=== PATIENT | female | born 1990 | race African-American/Black ===

== ENCOUNTER 2019-05-20 09:57 | Emergency (ER) | payer MEDICAID ==
[~2019-05-20] VITALS: Ht 152.4 cm; Wt 90.5 kg
[2019-05-20 09:59] VITALS: BP 140/85
--- NOTE | 2019-05-20 10:07 | NUR ---
pt ambulated to ER bed 07
--- NOTE | 2019-05-20 10:12 | NUR ---
PATIENT PRESENTS TO ED WITH FEVER AND PRODUCTIVE COUGH X 3 WEEKS. +RUNNY NOSE, +DIARRHEA, +N/A. PATIENT WITH 5/10 GENERALIZED BODY PAIN. TERAFLU TAKEN, WHICH PROVIDED NO RELIEF. DENIES URINARY SYMOPTOMS. UPON ASSESSMENT, PATIENT IS FEBRILE AND WARM TO TOUCH. PATIENT WITH CLEAR BREATH SOUNDS. HR EVEN AND REGULAR; PATIENT POSITIONED FOR COMFORT; HOB ELEVATED; BEDRAILS UP X2; BED DOWN. ER MD MADE AWARE OF PT STATUS. PMH: SICKLE CELL ANEMIA ALLERGIES: AZITHROMYCIN
[2019-05-20] MEDS ORDERED: cefTRIAXone 1,000 MG in LIDOCAINE MPF 1% 2.1 ML IM ONE (10:25)
[2019-05-20] MEDS ORDERED: ALBUTEROL SULFATE/IPRATROPIU 3 ML SOL IH ONE ×2 (10:25→11:35)
[2019-05-20] MEDS ORDERED: DEXAMETHASONE 10 MG/ML VIAL IM ONE (10:25)
[2019-05-20] MEDS ORDERED: hydrOXYzine HCL 25 MG TAB PO ONE (10:25)
[2019-05-20] MEDS ORDERED: cefTRIAXone 1,000 MG VIAL ONE (10:31)
[2019-05-20] MEDS ORDERED: LIDOCAINE MPF 1% 5 ML ONE (10:31)
[2019-05-20] MEDS ORDERED: MORPHINE SULFATE 4 MG/ML SYR IM ONE (10:50)
[2019-05-20 11:59] VITALS: BP 140/85
--- NOTE | 2019-05-20 12:00 | NUR ---
Patient discharged with v/s stable. Written and verbal after care instructions given and explained. Patient alert, oriented and verbalized understanding of instructions. Ambulatory with steady gait. All questions addressed prior to discharge. ID band removed. Patient advised to follow up with PMD. Rx of PROMETHAZINE, CLINDAMYCIN, PREDNISONE given. Patient educated on indication of medication including possible reaction and side effects. Opportunity to ask questions provided and answered.
== END 2019-05-20 12:00 | disposition home or self-care (01) ==
LOC: MED 09:57
DX: J32.9 Chronic sinusitis, unspecified (principal); Z86.2 Personal history of diseases of the blood and blood-forming organs and certain disorders involving the immune mechanism; Z88.1 Allergy status to other antibiotic agents
CPT/HCPCS: 94640; 96372; 99283; J0696; J1100; J2001; J2270

== ENCOUNTER 2019-05-28 15:23 | Emergency (ER) | payer MEDICAID ==
[~2019-05-28] VITALS: Ht 152.4 cm; Wt 90.7 kg
[2019-05-28 15:25] VITALS: BP 154/115
--- NOTE | 2019-05-28 15:36 | NUR ---
PT TRIAGED, SENT BACK TO LOBBY AWAITING FOR BED
--- NOTE | 2019-05-28 15:48 | NUR ---
Pt ambulated to bed 3 accompanied by significant other.
--- NOTE | 2019-05-28 15:59 | NUR ---
Patient crying, moaning, restless, uncontrollable, yelling in bed 3. Dr. White made aware. VORB orders for IV insertion received at this time.
--- NOTE | 2019-05-28 16:11 | NUR ---
DR SOMMER AT BEDSIDE
--- NOTE | 2019-05-28 16:12 | NUR ---
C/O SICKLE CELL CRISIS WITH SUDDEN ONSET R HIP AND R KNEE PAIN STARTING APPROX 3 HRS PRIOR TO ARRIVAL. DENIES TRAUMA/INJURY. PAIN 03/06. +CMS. PT RESTLESS AND MOANING IN BEHAVIOR. PT ALERT AND AWAKE. SATES SHE HAS NOT FOLLOWED UP WITH PCP DUE TO INSURANCE CHANGE. HX SICKLE CELL DISEASE RX PERCOCET 2 HRS AGO WITHOUT RELIEF
[2019-05-28] MEDS ORDERED: NACL 0.9% 1,000 ML IV SCH (16:16)
[2019-05-28] MEDS ORDERED: ONDANSETRON 4 MG/2 ML VIAL IVP ONE ×2 (16:20→22:45)
[2019-05-28] MEDS ORDERED: MORPHINE SULFATE 4 MG/ML SYR IVP ONE (16:20)
--- NOTE | 2019-05-28 16:33 | NUR ---
MORPHINE AND ZOFRAN IVP, BOLUS STARTED
--- NOTE | 2019-05-28 16:36 | NUR ---
PT STATES SHE IS UNABLE TO GIVE URINE AT THIS TIME DUE TO PAIN
--- NOTE | 2019-05-28 16:41 | NUR ---
PT GOING TO XRAY VIA WHEELCHAIR
--- NOTE | 2019-05-28 16:58 | NUR ---
PT RETURNED FROM XRAY. C/O 03/06 PAIN. NOTIFIED PT THAT DR IS IN A PROCEDURE AT THIS TIME BUT WILL INFORM HIM OF HER PAIN AFTER NADR
[2019-05-28] MEDS ORDERED: HYDROmorphone PFS 2 MG/ML SYR IVP ONE ×3 (17:05→19:05)
--- NOTE | 2019-05-28 17:16 | NUR ---
DILUADID IVP ADMINISTERED FOR PAIN
--- NOTE | 2019-05-28 17:18 | NUR ---
PT UNABLE TO GIVE URINE
[2019-05-28] MEDS ORDERED: NACL 0.9% 1,000 ML IV ONE (17:20)
[2019-05-28 17:21] LABS: HEMATOCRIT 33.7 % (36-48); HEMOGLOBIN 11.3 g/dL (12.0-16.0); MEAN CORPUSCULAR HEMOGLOBIN 30 pg (27-31); MEAN CORPUSCULAR HGB CONC 34 g/dL (33-37); MEAN CORPUSCULAR VOLUME 88.9 fL (80-94); PLATELET COUNT (AUTO) 413 K/uL (140-450); RED BLOOD CELL COUNT(AUTO) 3.78 MIL/uL (4.20-5.40); RED CELL DISTRIBUTION WIDTH 16.4 % (11.6-13.7); WHITE BLOOD COUNT (AUTO) 19.1 K/uL (4.8-10.8)
[2019-05-28 17:50] LABS: LYMPHOCYTES % (MANUAL) 47 % (20-46); MONOCYTES % (MANUAL) 1 % (5-12)
[2019-05-28 18:09] LABS: ALBUMIN 3.9 g/dL (3.4-5.0); ANION GAP 18.1 (8-16); CARBON DIOXIDE 22.5 mmol/L (21-32); CREATININE 0.8 mg/dL (0.6-1.3); POTASSIUM 3.6 mmol/L (3.5-5.1); TOTAL BILIRUBIN 1.3 mg/dL (0.0-1.0)
--- NOTE | 2019-05-28 18:09 | NUR ---
PT SIGNED CONSENT FORM FOR CONTRAST CT
--- NOTE | 2019-05-28 18:10 | NUR ---
ANOTHER DOSE OF DULAUDID BEING ADMINISTERED BY LELIA PORTILLO. PT C/O PAIN 03/06
--- NOTE | 2019-05-28 18:11 | NUR ---
PT NO LONGER CRYING BUT MOANING LOUDLY.
--- NOTE | 2019-05-28 18:11 | NUR ---
NADR AT THIS TIME
--- NOTE | 2019-05-28 18:16 | NUR ---
PT UNABLE TO GIVE URINE AT THIS TIME
--- NOTE | 2019-05-28 18:28 | NUR ---
PT GOING TO CT VIA WHEELCHAIR
--- NOTE | 2019-05-28 18:42 | NUR ---
PT RETURNED FROM CT
--- NOTE | 2019-05-28 18:44 | NUR ---
NADR. PER PATIENT, PAIN 6/10 STILL REQUESTING PAIN MEDICATIONS
--- NOTE | 2019-05-28 19:12 | NUR ---
REPORT GIVEN TO NAN PORTILLO, PENDING DILAUDID AT THIS TIME
--- NOTE | 2019-05-28 19:13 | NUR ---
REPORT RECIEVED FROM KECIA. PATIENT SUPINE IN BED, VSS ON MONITOR. AAO.
[2019-05-28 19:29] LABS: APPEARANCE,URINE CLEAR (CLEAR); BILIRUBIN,URINE NEGATIVE (NEGATIVE); BLOOD, URINE TRACE-I (NEGATIVE); COLOR,URINE YELLOW (YELLOW); LEUKOCYTE ESTERASE ,URINE NEGATIVE (NEGATIVE); NITRITE, URINE NEGATIVE (NEGATIVE); PH,URINE 6.5 (5.0-9.0); UGLUCOSE NEGATIVE (NEGATIVE)
[2019-05-28] MEDS ORDERED: cefTRIAXone 1,000 MG VIAL ONE (19:31)
[2019-05-28 19:38] LABS: RBC,URINE 0-5 /HPF (0-5); WBC,URINE 0 /HPF (0-5)
[2019-05-28] MEDS ORDERED: KETOROLAC 30 MG/ML VIAL IVP ONE ×2 (20:05→22:45)
--- NOTE | 2019-05-28 20:30 | NUR ---
PATIENT STILL IN INTENSE PAIN. ERMD AWARE.
--- NOTE | 2019-05-28 21:00 | NUR ---
PATIENT STATING CONTINUED PAIN, DR HILL MADE AWARE.
--- NOTE | 2019-05-28 22:27 | NUR ---
PATIENT STATING CONTINUED PAIN. DR. HILL MADE AWARE.
--- NOTE | 2019-05-28 22:39 | NUR ---
PATIENT STATES SHE IS FEELING NAUSEOUS. DR HILL AWARE.
--- NOTE | 2019-05-28 23:46 | NUR ---
PT LAYING IN BED, SLEEPING, AROUSABLE TO NAME, RR EVEN AND UNLABORED. VSS. GIVEN SANDWICH. ALL NEEDS MET AT THIS TIME.
--- NOTE | 2019-05-29 00:32 | NUR ---
PATIENT REPORTS HER PAIN IS RETURNING. 9/10 AT THIS TIME. ERMD AWARE.
[2019-05-29] MEDS ORDERED: MORPHINE SULFATE 4 MG/ML SYR IVP ONE (00:40)
--- NOTE | 2019-05-29 00:45 | NUR ---
PATIENT HOOKED UP TO MONITOR, VSS. LAYING SUPINE IN BED. FRIEND AT BEDSIDE. MORPHINE GIVEN ORDERED.
--- NOTE | 2019-05-29 01:01 | NUR ---
REPORT CALLED TO [facility], REPORT GIVEN TO MED-SURG NURSE DIAN. PATIENT STILL AWAITING TRANSPORT.
--- NOTE | 2019-05-29 01:08 | NUR ---
PATIENT REPORTS SOME RELIEF AFTER RECIEVING MORPHINE 4MG.
--- NOTE | 2019-05-29 01:56 | NUR ---
[facility] AT BEDSIDE
[2019-05-29 02:02] VITALS: BP 130/71
--- NOTE | 2019-05-29 02:03 | NUR ---
PATIENT TRANSFERRED TO [facility] VIA [facility]. PATIENT STABLE, AAO AT TIME OF TRANSFER. REPORT GIVEN TO LINDSEY BIGGS, AT [facility].
--- NOTE | 2019-05-29 02:04 | NUR ---
PT TAKEN BY [facility] TRANSPORT TO [facility] ROOM 488I
== END 2019-05-29 02:04 | disposition short-term general hospital (02) ==
LOC: MED 15:23
DX: M87.851 Other osteonecrosis, right femur (principal); E87.1 Hypo-osmolality and hyponatremia; Z88.1 Allergy status to other antibiotic agents
CPT/HCPCS: 36415; 72193; 73502; 73562; 80053; 81001; 81025; 83605; 85025; 85045; 85651; 86140; 87040; 87086; 96361; 96365; 96375; 96376; 99285; J0696; J1170; J1885; J2270; J2405; Q9967

== ENCOUNTER 2019-11-02 05:53 | Inpatient (IN) | payer MEDICAID, SELFPAY ==
[~2019-11-02] VITALS: Ht 152.4 cm; Wt 95.3 kg
[2019-11-02 05:57] VITALS: BP 136/90
--- NOTE | 2019-11-02 06:02 | NUR ---
AMBULATED TO ER BED 4
[2019-11-02] MEDS ORDERED: NACL 0.9% 1,000 ML IV ONE (06:05)
[2019-11-02] MEDS ORDERED: ONDANSETRON 4 MG/2 ML VIAL IVP ONE (06:05)
--- NOTE | 2019-11-02 06:05 | NUR ---
PT 29 Y/O FEMALE PRESENTING TO ER FOR C/O 11/04 ABD PAIN SINCE SUNDAY S/P "[employer]ATING [employer] SANDRA." PT ALSO HAS C/O N/V/D SINCE SUNDAY. PT STATES PAIN IS IN ALL 4 QUADRANTS, SHARP, AND PROVOKED BY VOMITING. PAIN RADAITES TO LOWER BACK ON L SIDE. ABD IS ROUND, SOFT, AND TENDER TO TOUCH. BS PRESENT X4. AFEBRILE. RESPIRATIONS ARE EVEN AND UNLABORED. SKIN IS WARM AND DRY TO TOUCH. SKIN TURGOR ELASTIC. PT ON APPRENTICE INSTRUMENT TECHNICIAN. VSS MEDHX: SICKLE CELL ANEMIA ALLERGIES: Z-DORYS
--- NOTE | 2019-11-02 06:10 | NUR ---
PT AMBULATED TO RESTROOM AND PROVIDED UA.
[2019-11-02] MEDS ORDERED: MORPHINE SULFATE 2 MG/ML SYR ONE (06:13)
[2019-11-02] MEDS ORDERED: MORPHINE SULFATE 4 MG/ML SYR ONE (06:13)
[2019-11-02] MEDS ORDERED: MORPHINE SULFATE 4 MG/ML SYR IVP ONE ×2 (06:15→08:10)
--- NOTE | 2019-11-02 06:20 | NUR ---
IV PLACED IN R AC 20G. IV SITE PATENT. NO C/O PAIN, SWELLING NOTED. LABS DRAWN AND SENT TO LAB.
--- NOTE | 2019-11-02 06:25 | NUR ---
ZOFRAN 4MG GIVEN IVP, MORPHINE 4MG GIVEN IVP. IV SITE IS PATENT. NO REDNESS OR SWELLING NOTED AT THIS TIME.
--- NOTE | 2019-11-02 06:30 | NUR ---
IVF 0.9% NS 1L RUNNING CONTINOUSLY. PT ON SHEET HEATER.
[2019-11-02 06:37] LABS: HEMATOCRIT 38.2 % (36-48); HEMOGLOBIN 13.1 g/dL (12.0-16.0); MEAN CORPUSCULAR HEMOGLOBIN 31 pg (27-31); MEAN CORPUSCULAR HGB CONC 34 g/dL (33-37); MEAN CORPUSCULAR VOLUME 89.5 fL (80-94); PLATELET COUNT (AUTO) 423 K/uL (140-450); RED BLOOD CELL COUNT(AUTO) 4.26 MIL/uL (4.20-5.40); RED CELL DISTRIBUTION WIDTH 17.5 % (11.6-13.7)
[2019-11-02 06:38] LABS: APPEARANCE,URINE HAZY (CLEAR); BILIRUBIN,URINE 2+ (NEGATIVE); BLOOD, URINE TRACE-I (NEGATIVE); COLOR,URINE YELLOW (YELLOW); LEUKOCYTE ESTERASE ,URINE NEGATIVE (NEGATIVE); NITRITE, URINE NEGATIVE (NEGATIVE); UGLUCOSE NEGATIVE (NEGATIVE)
[2019-11-02 06:38] LABS: WHITE BLOOD COUNT (AUTO) 27.3 K/uL (4.8-10.8)
--- NOTE | 2019-11-02 06:38 | NUR ---
CRITICAL LAB: WBC 27.3. ERMD MADE AWARE, NO NEW ORDERS AT THIS TIME. . RECIVED REPORT FROM JOSESITO FROM LAB.
[2019-11-02 06:51] LABS: ALBUMIN 4.3 g/dL (3.4-5.0); ANION GAP 16.1 (8-16); CARBON DIOXIDE 26.1 mmol/L (21-32); CREATININE 0.9 mg/dL (0.6-1.3); POTASSIUM 3.2 mmol/L (3.5-5.1)
[2019-11-02 06:56] LABS: BASOPHILS % (MANUAL) 0 % (0-2); EOSINOPHILS % (MANUAL) 0 % (0-4); LYMPHOCYTES % (MANUAL) 21 % (20-46); MONOCYTES % (MANUAL) 6 % (5-12)
--- NOTE | 2019-11-02 06:57 | NUR ---
PT STATES ABD PAIN HAS REDUCED FROM 6/10 PAIN TO 3/10 PAIN. PT STATES FEELINGS OF NAUSEA HAS DECREASED WELL.
[2019-11-02 07:02] LABS: RBC,URINE 0-5 /HPF (0-5)
[2019-11-02 07:03] LABS: WBC,URINE 0-5 /HPF (0-5)
--- NOTE | 2019-11-02 07:03 | NUR ---
GAVE REPORT TO CATIE PORTILLO. TRANSFER OF CARE.
--- NOTE | 2019-11-02 07:12 | NUR ---
Pt report received from LINDSEY Pool. Transfer of care at this time.
--- NOTE | 2019-11-02 07:33 | NUR ---
xray is at bedside.
[2019-11-02] MEDS ORDERED: POTASSIUM CHLORIDE 10 MEQ TABER PO ONE (08:05)
[2019-11-02] MEDS ORDERED: DICYCLOMINE HCL LIQUID 20 MG, ALUMINUM HYD/MAG/SIMETHICONE 30 ML, LIDOCAINE VISCOUS 2% ... PO ONE ×3 (08:10)
[2019-11-02] MEDS ORDERED: DICYCLOMINE HCL LIQUID 10 MG/5 ML UDC ONE (08:12)
[2019-11-02] MEDS ORDERED: LIDOCAINE VISCOUS 2% 20 ML UDC ONE (08:12)
[2019-11-02] MEDS ORDERED: ALUMINUM HYD/MAG/SIMETHICONE 30 ML UDC ONE (08:12)
--- NOTE | 2019-11-02 08:53 | NUR ---
PT STATES SHE FEELS MUCH BETTER AND HAVE NO PAIN AT THIS TIME.
--- NOTE | 2019-11-02 09:03 | NUR ---
Dr. Murrell is re-evaluating pt at bedside.
[2019-11-02] MEDS ORDERED: VITA1TAB44 PO (09:24)
[2019-11-02] MEDS ORDERED: HYDR500C7 PO (09:24)
--- NOTE | 2019-11-02 09:33 | NUR ---
Admiting Dr is evaluating pt at bedside.
[2019-11-02] MEDS ORDERED: LORazepam 2 MG/ML VIAL IM/IVP PRN (09:55)
[2019-11-02] MEDS ORDERED: ACETAMINOPHEN 325 MG TAB PO PRN (09:55)
[2019-11-02] MEDS ORDERED: DOCUSATE SODIUM 100 MG GELCAP PO PRN (09:55)
--- NOTE | 2019-11-02 09:56 | NUR ---
Patient will be admitted to care of SICKLE CELL CRISIS, N/V, AND LEUKOCYTOSIS. Admited to TELEMETRY. Will go to room 105B. Belongings list completed. Report to LINDSEY FERRARA.
--- NOTE | 2019-11-02 09:56 | NUR ---
PATIENT ARRIVED UNIT VIA [facility] ACCOMPANIED BY ER NURSE CATIE. TRANSFERRED PT FROM [facility] TO BED, PT IS ABLE TO AMBULATORY AND APPLIED TELE MONITOR. PT IS AAOX4, ABLE TO MAKE NEEDS KNOWN, AND FOLLOW COMMAND. RESPIRATION EVEN AND UNLABORED ON RA. DENIED PAIN, SOB AND DIZZINESS AT THIS TIME. NO ACUTE DISTRESS NOTED. IV ON RAC 20G, CLEAN, INTACT, DATE, AND SALINE LOCK AT THIS TIME. SKIN CLEAN AND DRY. PT IS CONTINENT. ORIENTED PT TO HER ROOM, DEMONSTRATED ON HOW TO USE THE CALL LIGHT, BED REMOTE, LIGHT TV, BATHROOM AND TELEPHONE. UPDATED BOARD.
[2019-11-02 10:00] VITALS: BP 125/61
--- NOTE | 2019-11-02 10:00 | NUR ---
MRSA NARES COLLECTED AND VITAL SIGNS TAKEN; TEMP 98.5, BP 125/61, PULSE 68, RR 20, SPO2 97% RA DENIED PAIN AT THIS TIME. TELE MONITOR ATTACHED. SAFETY MEASURES IN PLACE.
[2019-11-02] MEDS ORDERED: HYDROmorphone 1 MG/ML AMP IVP PRN (10:05)
--- NOTE | 2019-11-02 10:10 | NUR ---
EXPLAINED TO PT THAT MD WANTS HER TO NOTHING BY MOUTH, NO WATER OR FOOD FOR NOW, IF SHE HAS DRY MOUTH, ICE CHIPS WILL BE PROVIDED. PT WAS AWARE. NPO SIGN POSTED BY DOOR. NO SIGNS OF DISTRESS NOTED. TELE MONITOR ATTACHED. SAFETY MEASURES IN PLACE.
[2019-11-02] MEDS: NACL 0.9% 1,000 ML IV SCH ×2 (10:26→23:47)
--- NOTE | 2019-11-02 10:26 | NUR ---
STARTED IVF PER MD ORDER, NS AT 90 ML/HR.
[2019-11-02] MEDS ORDERED: VIT-B COMP/VIT-C/FOLIC ACID 1 TAB PO SCH (10:30)
--- NOTE | 2019-11-02 10:44 | NUR ---
ADMINISTERED MEDS PER MD ORDER, MEDS EDUCATION PROVIDED AND PT VERBALIZED UNDERSTANDING. PT TOOK MED WITH A SIP OF WATER. PT IS TALKING ON THE PHONE. WILL GET CONSENT WHEN PT FINISHES HER PHONE CALL. NO SIGNS OF DISTRESS NOTED. TELE MONITOR ATTACHED. SAFETY MEASURES IN PLACE.
[2019-11-02] MEDS ORDERED: HYDROXYUREA 500 MG CAP PO SCH (10:45)
[2019-11-02 10:53] LABS: PROTHROMBIN TIME 10.5 secs (10.8-13.4)
[2019-11-02 10:54] LABS: CHOL/HDL RATIO 3.9 (1-4.5)
[2019-11-02] MEDS ORDERED: ENOXAPARIN 40 MG/0.4 ML SYR SUBQ SCH (11:00)
--- NOTE | 2019-11-02 11:00 | NUR ---
ADMINISTERED HYDREA PER MD ORDER, MED EDUCATION PROVIDED AND PT VERBALIZED UNDERSTANDING. PT IS WATCHING HER PHONE. NO SIGNS OF DISTRESS NOTED. TELE MONITOR ATTACHED. SAFETY MEASURES IN PLACE.
[2019-11-02 11:03] LABS: MAGNESIUM 2.1 mg/dL (1.8-2.4); PHOSPHORUS 2.8 mg/dL (2.5-4.9); THYROID STIMULATING HORMONE 0.97 uIU/mL (0.34-3.74)
--- NOTE | 2019-11-02 11:04 | NUR ---
OBTAINED CONSENT FOR CT SCAN AND PT VERBALIZED UNDERSTANDING. NOTIFIED CT DEPT AND SPOKE WITH TECH, INFORMED PT IS NPO AND RAC 20G, RAMP AGENT WAS AWARE AND SAID WILL MACHINE HEDDLE CLEANER PT IN 10 MINS.
--- NOTE | 2019-11-02 11:50 | NUR ---
PT CAME BACK FROM CT SCAN AND CONNECTED BACK TO IVF. EXPLAINED THAT MD CHANGED DIET TO CLEAR LIQUID, PROVIDED FRESH WATER. PT IS LOOKING AT HER PHONE. NO SIGNS OF DISTRESS NOTED. TELE MONITOR ATTACHED. SAFETY MEASURES IN PLACE.
[2019-11-02 12:00] VITALS: BP 118/60
--- NOTE | 2019-11-02 12:00 | NUR ---
ADMINISTERED MED ROCEPHIN VIA IVPB PER MD ORDER, MED EDUCATION PROVIDED AND PT SAID OK. PT REQUESTED FOR EXTRA PILLOW AND BLANKET, PROVIDED. PT IS RESTING ON BED AND LOOKING AT HER PHONE. NO SIGNS OF DISTRESS NOTED. TELE MONITOR ATTACHED. SAFETY MEASURES IN PLACE.
--- NOTE | 2019-11-02 12:12 | NUR ---
PT PLACED ON 2LNC DR REQUESTED PT SAT 99% HR 69
[2019-11-02] MEDS: metroNIDAZOLE 500 MG/NS PREMIX 100 ML IV SCH ×2 (13:03→20:32)
[2019-11-02] MEDS: MORPHINE SULFATE 2 MG/ML SYR IVP PRN ×2 (13:06→20:30)
--- NOTE | 2019-11-02 13:09 | NUR ---
ADMINISTERED SCHEDULED ANTIBIOTIC PER MD ORDER, MED EDUCATION PROVIDED AND PT VERBALIZED UNDERSTANDING. PT COMPLAINED SHE HAS 6/10 PAIN ON HER BODY AND BACK, MEDICATED WITH PRN MORPHINE, MED ED PROVIDED. PT IS RESTING ON BED AND LOOKING AT HER PHONE. NO ACUTE DISTRESS NOTED. TELE MONITOR ATTACHED. SAFETY MEASURES IN PLACE.
--- NOTE | 2019-11-02 15:44 | NUR ---
PT AWAKE AND WATCHING VIDEO ON HER PHONE. DENIED SOB, DIZZINESS AND PAIN AT THIS TIME. REQUESTED MOUTH WASH, TOOTH BRUSH AND TOO PASTE, PROVIDED. NO SIGNS OF DISTRESS NOTED. TELE MONITOR ATTACHED. SAFETY MEASURES IN PLACE.
[2019-11-02 16:00] VITALS: BP 124/78
--- NOTE | 2019-11-02 17:12 | NUR ---
REMOVED TELE MONITOR AND RETURNED TO TELE ALINING INSPECTOR. REQUESTED FOR MORE ICE WATER, PROVIDED. PT IS TALKING ON THE PHONE. NO SIGNS OF DISTRESS NOTED. SAFETY MEASURES IN PLACE.
--- NOTE | 2019-11-02 19:19 | NUR ---
ENDORSED PT AT BEDSIDE TO TACK CLEANER NURSE FOR CONTINUITY OF CARE. PT IS AWAKE AND RESTING ON BED. PT IS IN STABLE CONDITION.
--- NOTE | 2019-11-02 19:20 | NUR ---
RECEIVED REPORT FORM JOSIAS RNDAYSHIFT NURSE AT BEDSIDE FOR CONTINUITY OF CARE, PT IN STABLE CONDITION.
[2019-11-02 20:10] LABS: BARBITURATE, URINE NEGATIVE ng/ml (NEG <=200); BENZODIAZEPINE, URINE NEGATIVE ng/mL (NEG <=200); CANNABINOID, URINE POSITIVE ng/mL (NEG <=50); COCAINE, URINE NEGATIVE ng/mL (NEG <=300); OPIATE, URINE NEGATIVE ng/mL (NEG <=2000); PHENCYCLIDINE SCREEN,URINE NEGATIVE ng/mL (NEG <=25)
[2019-11-02 20:26] VITALS: BP 123/87
--- NOTE | 2019-11-02 20:30 | NUR ---
PT IS AOX4 IV SITE ON RAC 20G INTACT AND RUNNING NS AT 90MLS/HR. V/S FOLLOWS: T 97.9 P 86 R 18 B/P 123/87 02 98% ON 1 LITER N/C FOR COMFORT. PT C/O 6/10 MODERATE PAIN AND WAS GIVEN MORPHINE PRN/IVP. PT ALSO GIVEN DUE MEDS OF IV ABT FLAGYL MEDICATIONS AND SIDE EFFECTS EXPLAINED AT BEDSIDE, PT VERBALIZED UNDERSTANDING. PT C/O OF NAUSEA AND WAS GIVEN IVP/PRN ZOFRAN. WILL MONITOR FOR EFFECT OF PRN'S AND SIDE EFFCTS OF IVABT. ALL UNIVERSAL PRECAUTIONS IN PLACE.
[2019-11-02] MEDS: ONDANSETRON 4 MG/2 ML VIAL IM/IVP PRN (20:42)
[2019-11-02] MEDS: ZOLPIDEM 5 MG TAB PO PRN (22:20)
--- NOTE | 2019-11-02 22:30 | NUR ---
PT C/O DIFFICULTY SLEEPING, PT WAS GIVEN PO/PRN AMBIEN , WILL MONITOR FOR EFFECT.
--- NOTE | 2019-11-03 | NUR ---
PT IN BED RESTING WITH EYES CLOSED BUT AROUSABLE TO NAME, V/S FOLLOWS: T 98.1 P 70 R 15 B/P 100/61 02 96% WITH 1 LITER N/C . NO C/O VOICED, N/S RUNNING ORDERED IV SITE ASYMPTOMATIC. ALL UNIVERSAL PRECAUTIONS IN PLACE.
[2019-11-03] MEDS: MORPHINE SULFATE 2 MG/ML SYR IVP PRN ×4 (02:45→21:29)
[2019-11-03] MEDS: ONDANSETRON 4 MG/2 ML VIAL IM/IVP PRN ×2 (02:49→16:40)
--- NOTE | 2019-11-03 03:00 | NUR ---
PT AWOKE WITH C/O OF 6/10 GENERALIZED PAIN, SHE WAS GIVEN PRN/IVP MORPHINE WELL IVP FOR ZOFRAN FOR C/O OF NAUSEA . WILL MONITOR FOR EFFECT.
[2019-11-03 04:00] VITALS: BP 110/64
--- NOTE | 2019-11-03 05:30 | NUR ---
LIZBET BERMUDEZ AND RUNNING ORDERED.
[2019-11-03] MEDS: metroNIDAZOLE 500 MG/NS PREMIX 100 ML IV SCH ×4 (05:45→23:15)
[2019-11-03 06:15] LABS: BASOPHILS # (AUTO) 0.1 K/uL (0.00-0.22); BASOPHILS % (AUTO) 0.5 % (0.0-2.0); EOSINOPHILS % (AUTO) 0.2 % (0.0-4.0); HEMATOCRIT 31.9 % (36-48); HEMOGLOBIN 11.4 g/dL (12.0-16.0); LYMPHOCYTES # (AUTO) 4.2 K/uL (2.5-16.5); LYMPHOCYTES % (AUTO) 22.5 % (20.5-51.1); MEAN CORPUSCULAR HEMOGLOBIN 32 pg (27-31); MEAN CORPUSCULAR HGB CONC 36 g/dL (33-37); MONOCYTES # (AUTO) 1.2 K/uL (0.8-1.0); MONOCYTES % (AUTO) 6.1 % (1.7-9.3); NEUTROPHILS # (AUTO) 13.3 K/uL (1.8-7.7); NEUTROPHILS % (AUTO) 70.7 % (42.2-75.2); PLATELET COUNT (AUTO) 315 K/uL (140-450); RED BLOOD CELL COUNT(AUTO) 3.58 MIL/uL (4.20-5.40); RED CELL DISTRIBUTION WIDTH 17.1 % (11.6-13.7); WHITE BLOOD COUNT (AUTO) 18.9 K/uL (4.8-10.8)
[2019-11-03 06:48] LABS: ANION GAP 12.5 (8-16); CARBON DIOXIDE 25.2 mmol/L (21-32); CREATININE 0.7 mg/dL (0.6-1.3); POTASSIUM 3.7 mmol/L (3.5-5.1)
--- NOTE | 2019-11-03 07:33 | NUR ---
RECEIVED REPORT FROM NIGHT NURSE PT IS AAOX4 ON O2 1LPM VIA NC, SKIN INTACT, IV SITES INTACT ON RIGHT AC G20. SAFETY MEASURES IN PLACE, CALL LIGHT WITHIN REACH. WILL CONTINUE TO MONITOR.
[2019-11-03] MEDS: NACL 0.9% 1,000 ML IV SCH ×2 (08:08→18:53)
--- NOTE | 2019-11-03 08:23 | NUR ---
PT AGREED TO TEST FOR COVID19. SWABBED AND BROUGHT TO LAB FOR TESTING AT THIS TIME, PT IS COOPERATIVE AND VERBALIZES UNDERSTANDING. WILL CONTINUE TO MONITOR.
--- NOTE | 2019-11-03 09:13 | NUR ---
PATIENT HAS BEEN SCREENED AND CATEGORIZED MODERATE NUTRITION RISK. PATIENT WILL BE SEEN WITHIN 3-5 DAYS OF ADMISSION. 11/04/19 11/06/[address]
--- NOTE | 2019-11-03 09:30 | NUR ---
MEDICATIONS DUE GIVEN , AND PT COMPLAINS OF PAIN 5/10, CHECK VITAL SIGNS AND PAIN MEDICATIONS GIVEN MORPHINE SULFATE 0.5ML. SAFETY MEASURES IN PLACE CALL LIGHT WITHIN REACH.WILL CONTINUE TO MONITOR.
[2019-11-03] MEDS: LACTOBACILLUS RHAMNOSUS GG 1 EACH CAP PO SCH (09:39)
[2019-11-03] MEDS: VIT-B COMP/VIT-C/FOLIC ACID 1 TAB PO SCH (09:39)
[2019-11-03] MEDS: HYDROXYUREA 500 MG CAP PO SCH (09:40)
[2019-11-03] MEDS: ENOXAPARIN 40 MG/0.4 ML SYR SUBQ SCH (09:49)
--- NOTE | 2019-11-03 12:00 | NUR ---
MEDICATIONS DUE GIVEN AND CHECK VITAL SIGNS PT IS STABLE AND DENIES PAIN, NO DISTRESS NOTED. SAFETY MEASURES IN PLACE, CALL LIGHT WITHIN REACH. WILL CONTINUE TO MONITOR.
[2019-11-03 12:26] VITALS: BP 101/57
--- NOTE | 2019-11-03 13:46 | NUR ---
RADIOLOGIST CHIEF OF BREAST IMAGING NOTE: Basic Screen: Yes High Risk DC Screen [place]: JASMYNE Roberson Relationship: MOTHER Pre-Admission Living Arrangements: Lives with Other Prior ADL Independent Current Home Health Name/Tel: N/A Current DME/02 Name/Tel: N/A Current Hospice Name/Tel: N/A Current Dialysis Name/Tel: N/A Healthcare Decision Maker: Patient Advance Directive No Physician Orders for Life Sustaining Treatment Form No Patient/Family Have Educational Needs No Discipline: Case Mgt/Social Svcs Tentative Discharge Plan/Destination: No Needs Identified Will require assistance post discharge: No Referred to Digester Operator Helper: No Tentative Discharge Plan Summary: PATIENT IS A 29-YEAR-OLD FEMALE ADMITTED FOR SICKLE CELL CRISIS. PATIENT HAS PMHX OF SICKLE CELL ANEMIA. PATIENT WAS ADMITTED FROM HOME WHERE SHE LIEVS WITH SIGNIFICANT OTHER. SW SPOKE WITH PATIENT TELEPHONICALLY TO COMPLETE ASSESSMENT. PATIENT VERIFIED THAT PATIENT'S EMERGENCY CONTACT IS JASMYNE HONG [phone]. PATIENT REPORTED NO HISTORY OF MENTAL HEALTH OR SUBSTANCE ABUSE. PATIENT STATED SHE IS INDEPENDENT WITH ALL ADLS. TENTATIVE DISCHARGE PLAN IS FOR PATIENT TO RETURN HOME. NO FURTHER NEEDS IDENTIFIED. Signature: TABITHA MENESES Date: Nov 03, 2019 Time: 13:45
--- NOTE | 2019-11-03 16:30 | NUR ---
PT COMPLAINS OF BODY ACHE RATE OF 5/10 AND FEELING OF NAUSEA. PAIN MEDICATIONS GIVEN MORPHINE AND ZOFRAN AT THIS TIME. PT IS STABLE WILL CONTINUE TO MONITOR.
--- NOTE | 2019-11-03 19:05 | NUR ---
ENDORSED PT TO NIGHT NURSE FOR CONTINUITY OF CARE, PT IS STABLE
--- NOTE | 2019-11-03 19:06 | NUR ---
RECEIVED REPORT FROM NIGHT NURSE PT IS AAOX4 ON O2 2LPM VIA NC, PRN AT THIS TIME, SKIN INTACT, IV SITES INTACT ON RIGHT AC G20 NS AT 90ML/ HR, WILL CHECK ON SITE FURTHER ENDORSED BY PREVIOUS SHIT PT REFUSED RE-INSERTION, PAIN ON SITE BUT PATENT. SAFETY MEASURES IN PLACE, CALL LIGHT WITHIN REACH. WILL CONTINUE TO MONITOR.
--- NOTE | 2019-11-03 20:30 | NUR ---
PER LAB, PATIENT IS NEGATIVEFOR COVID; PT INFORMED AND TAKEN OUT ENHANCED PREC SIGNS
--- NOTE | 2019-11-03 20:45 | NUR ---
DR. PATEL AWARE OF COVID NEGATIVE
--- NOTE | 2019-11-03 21:47 | NUR ---
UNDONE THE IV MEDS [facility] BECAUSE PT NEEDS TO KNOW IF SHE NEEDS IT, WILL ASK DR. PATEL. FLAGYL IV STILL ON HOLD PENDING DR. PATEL'S ORDERS
--- NOTE | 2019-11-03 21:48 | NUR ---
PATIENT'S PRESENT IV SITE SWOLLEN, PATIENT SAID IF WE CAN DISCONTINUED IT ALREADY. D/C THE PRESENT IVF; WILL LOOK FOR A SITE LATER
--- NOTE | 2019-11-03 21:58 | NUR ---
WILL LOOK FOR A SITE FOR AN IVF; DR. PATEL THAT WE HAVE TO CONTINUE GIVING THE FLAGYL AND OTHER ANTIBIOTICS FOR ENTERITIS . WILL EXPLAIN TO PT.
--- NOTE | 2019-11-03 22:00 | NUR ---
PT EXPLAINED THAT WE NEED TO GIVE HER ANTIBIOTICS SHE SAID SHE WANTS THAT ANTIBIOTICS INFUSED LATER AND TO GIVE HER A BREAK 1ST.
--- NOTE | 2019-11-03 23:00 | NUR ---
IV STARTED ON THE LEFT HAND G 24, NO SWELLING; WILL INFUSE THE ANTIBIOTIC FLAGYL
[2019-11-03] MEDS: ZOLPIDEM 5 MG TAB PO PRN (23:08)
--- NOTE | 2019-11-03 23:08 | NUR ---
PATIENT SAID THAT SHE WANTS SOMETHING FOR SLEEP, ADMINISTERED AMBIEN FOR SLEEPLESSNESS
[2019-11-04] VITALS: BP 128/72
--- NOTE | 2019-11-04 01:20 | NUR ---
PT WENT TO THE BATHROOM, AMBULATORY STEADY GAIT, WILL CONTINUE TO MONITOR
[2019-11-04 04:00] VITALS: BP 125/75
[2019-11-04] MEDS: metroNIDAZOLE 500 MG/NS PREMIX 100 ML IV SCH ×2 (04:25→06:11)
--- NOTE | 2019-11-04 04:26 | NUR ---
PT SLEEPING, ALSO THE LAST FLAGYL WAS ADMINISTERED, LESS THAN 4 HRS AGO. WILL ADMINISTER WITH A SPAN OF 7 HRS IN BETWEEN THE LAST TIME GIVEN Addendum: 11/04/19 at 0429 by Audrey Carlos RN OR 7-8 HRS IN BETWEEN
[2019-11-04] MEDS: NACL 0.9% 1,000 ML IV SCH (06:22)
--- NOTE | 2019-11-04 06:26 | NUR ---
PT HAS BEEN ALWAYS WANTING HER IVF OFF; EXPLAINED TO THE PT RISKS AND BENEFITS. PT VERBALIZED UNDERSTANDING
--- NOTE | 2019-11-04 06:44 | NUR ---
PT IN STABLE CONDITION, NO SOB, NO RESPIRATORY DISTRESS. WILL ENDORSE TO NEXT SHIFT
[2019-11-04 07:00] LABS: ANION GAP 15.8 (8-16); CARBON DIOXIDE 21.8 mmol/L (21-32); CREATININE 0.8 mg/dL (0.6-1.3); POTASSIUM 3.6 mmol/L (3.5-5.1)
--- NOTE | 2019-11-04 07:01 | NUR ---
RECEIVED PATIENT FROM COMPUTING ARCHITECT NURSE FOR CONTINUITY OF CARE. PATIENT IS AAOX4. IRISH SPEAKING. RESPIRATIONS EVEN AND UNLABORED, ROOM AIR. VISIBLE CHEST RISE AND FALL NOTED. ON MED-SURGE. ABDOMEN SOFT AND NONTENDER. ON CCHO 60 GM DIET. SKIN WARM, DRY, AND INTACT. IV ON LEFT HAND G24, SALINE LOCK. PER PM NURSE, PATIENT REFUSED IVF. FALL PRECAUTION. BED IN LOW POSITION. CALL LIGHT IS WITHIN REACH. WILL CONTINUE TO MONITOR.
[2019-11-04 07:04] LABS: PHOSPHORUS 2.9 mg/dL (2.5-4.9)
[2019-11-04 07:07] LABS: BASOPHILS # (AUTO) 0.2 K/uL (0.00-0.22); EOSINOPHILS # (AUTO) 0.1 K/uL (0-0.4); EOSINOPHILS % (AUTO) 0.4 % (0.0-4.0); HEMATOCRIT 32.6 % (36-48); HEMOGLOBIN 11.3 g/dL (12.0-16.0); LYMPHOCYTES # (AUTO) 3.5 K/uL (2.5-16.5); LYMPHOCYTES % (AUTO) 20.6 % (20.5-51.1); MEAN CORPUSCULAR HEMOGLOBIN 31 pg (27-31); MEAN CORPUSCULAR HGB CONC 35 g/dL (33-37); MEAN CORPUSCULAR VOLUME 88.9 fL (80-94); MONOCYTES # (AUTO) 1.1 K/uL (0.8-1.0); MONOCYTES % (AUTO) 6.7 % (1.7-9.3); NEUTROPHILS # (AUTO) 12.1 K/uL (1.8-7.7); NEUTROPHILS % (AUTO) 71.3 % (42.2-75.2); PLATELET COUNT (AUTO) 315 K/uL (140-450); RED BLOOD CELL COUNT(AUTO) 3.67 MIL/uL (4.20-5.40); RED CELL DISTRIBUTION WIDTH 16.7 % (11.6-13.7)
[2019-11-04] MEDS ORDERED: VITA1TAB44 PO (08:04)
[2019-11-04] MEDS ORDERED: METR500T1 PO (08:04)
[2019-11-04] MEDS ORDERED: LACT10CA PO (08:04)
[2019-11-04] MEDS ORDERED: HYDR500C7 PO (08:04)
[2019-11-04] MEDS: LACTOBACILLUS RHAMNOSUS GG 1 EACH CAP PO SCH (08:38)
[2019-11-04] MEDS: VIT-B COMP/VIT-C/FOLIC ACID 1 TAB PO SCH (08:38)
--- NOTE | 2019-11-04 08:38 | NUR ---
GIVEN MORNING MEDICATIONS PO PER MD ORDER. LOVENOX SUBQ IN THE ABDOMEN. PLATELET IS 315. PATIENT TOLERATED WELL. EXPLAINED MEDICATIONS. PATIENT VERBALIZED UNDERSTANDING. BED IN LOW POSITION. CALL LIGHT IS WITHIN REACH. WILL CONTINUE TO MONITOR.
[2019-11-04] MEDS: HYDROXYUREA 500 MG CAP PO SCH (08:39)
[2019-11-04] MEDS: ENOXAPARIN 40 MG/0.4 ML SYR SUBQ SCH (08:46)
[2019-11-04 08:51] VITALS: BP 106/61
--- NOTE | 2019-11-04 09:00 | NUR ---
GIVEN DISCHARGE INSTRUCTIONS. EXPLAINED DR PRESCRIBED HER TWO MEDICATIONS: CULTURELLE AND FLAGYL THAT ARE ALREADY SENT OUT TO THE PHARMACY SHE PREFERS. PATIENT VERBALIZED UNDERSTANDING. PATIENT SIGNED DISCHARGE PAPERWORK.
--- NOTE | 2019-11-04 09:12 | NUR ---
DISCONTINUED IV SITE AND REMOVED ID BANDS. PATIENT REFUSED PNA AND FLU VACCINES.
--- NOTE | 2019-11-04 09:20 | NUR ---
DISCHARGED PATIENT ON FOOT. ACCOMPANIED TO THE FRONT LOBBY. PATIENT WILL DRIVE SELF HOME. IS IN STABLE CONDITION
== END 2019-11-04 09:20 | disposition home or self-care (01) | DRG 720 ==
LOC: MED 05:53 → EEVIPCON 09:19 → MTU 09:19
PROVIDERS: ADMIT General Practice; ATTEND General Practice
DX: A41.9 Sepsis, unspecified organism (principal); D57.00 Hb-SS disease with crisis, unspecified; K76.0 Fatty (change of) liver, not elsewhere classified; E87.6 Hypokalemia; F17.210 Nicotine dependence, cigarettes, uncomplicated; F12.20 Cannabis dependence, uncomplicated; E78.5 Hyperlipidemia, unspecified; E66.9 Obesity, unspecified; A09 Infectious gastroenteritis and colitis, unspecified; R73.9 Hyperglycemia, unspecified; F43.9 Reaction to severe stress, unspecified; K80.20 Calculus of gallbladder without cholecystitis without obstruction; N83.202 Unspecified ovarian cyst, left side; Z88.1 Allergy status to other antibiotic agents; Z83.3 Family history of diabetes mellitus; Z82.49 Family history of ischemic heart disease and other diseases of the circulatory system; Z91.19 Patient's noncompliance with other medical treatment and regimen; Z03.818 Encounter for observation for suspected exposure to other biological agents ruled out; Z68.41 Body mass index [BMI] 40.0-44.9, adult
CPT/HCPCS: 36415; 71045; 80048; 80053; 80305; 81001; 82150; 83036; 83605; 83690; 83735; 83880; 84100; 84134; 84443; 85025; 85610; 85730; 87040; 87081; 96361; 96374; 96375; 96376; 99285; J0696; J1650; J2270; J2405; J3490; J7030; J7060; Q9967; U0003-CS